=== PATIENT | male | born 1950 | race Two or more races ===

== ENCOUNTER 2021-04-23 09:27 | Emergency (ER) | payer OTHER ==
[~2021-04-23] VITALS: Ht 177.8 cm; Wt 77.1 kg
[2021-04-23] MEDS ORDERED: LITHIUM CARBON300 MG (10:08)
[2021-04-23] MEDS ORDERED: RISPERDAL0.5 MG (10:09)
[2021-04-23] MEDS ORDERED: PROZAC20 MG (10:09)
[2021-04-23] MEDS ORDERED: COMBIGAN EYE DRO5 ML (10:10)
[2021-04-23] MEDS ORDERED: LUMIGAN2.5 M1 (10:10)
[2021-04-23] MEDS ORDERED: RESTORIL15 M1 (10:10)
[2021-04-23] MEDS ORDERED: SYNTHROID75 MCG (10:17)
[2021-04-23] MEDS ORDERED: SYNTHROID50 MCG (10:17)
== END 2021-04-23 13:02 | disposition home or self-care (01) ==
LOC: ER 09:27
DX: M13.871 Other specified arthritis, right ankle and foot (principal); M25.571 Pain in right ankle and joints of right foot

== ENCOUNTER 2023-04-20 09:06 | Outpatient (CLI) | payer OTHER ==
[~2023-04-20 09:06] MED LIST: COMBIGAN EYE DRO5 ML; LITHIUM CARBON300 MG; LUMIGAN2.5 M1; PROZAC20 MG; RESTORIL15 M1; RISPERDAL0.5 MG; SYNTHROID50 MCG; SYNTHROID75 MCG
== END 2023-04-20 09:18 | disposition home or self-care (01) ==
LOC: MRI 09:06
PROVIDERS: ATTEND Physical Medicine & Rehabilitation
DX: R41.0 Disorientation, unspecified (principal)